=== PATIENT | female | born 1970 | race American Indian/Alaskan Native ===

== ENCOUNTER 2022-03-30 21:13 | Emergency (ER) | payer OTHER ==
[2022-03-31] MEDS ORDERED: ACETAMINOPHEN 500 MG TAB PO ONE (02:59)
[2022-03-31] MEDS ORDERED: IBUPROFEN 600 MG TAB PO ONE (02:59)
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
[2022-03-31 04:46] VITALS: BP 127/82
== END 2022-03-31 05:10 | disposition home or self-care (01) ==
LOC: ED 21:13
DX: S39.012A Strain of muscle, fascia and tendon of lower back, initial encounter (principal); M62.830 Muscle spasm of back; Z88.6 Allergy status to analgesic agent; Z88.8 Allergy status to other drugs, medicaments and biological substances; Z79.899 Other long term (current) drug therapy; V89.2XXA Person injured in unspecified motor-vehicle accident, traffic, initial encounter; Y93.89 Activity, other specified; Y92.488 Other paved roadways as the place of occurrence of the external cause; Y99.8 Other external cause status
CPT/HCPCS: 72100; 99283